=== PATIENT | male | born 1945 | race Caucasian/White ===

== ENCOUNTER 2021-05-20 10:59 | Emergency (ER) | payer MEDICARE, SELFPAY ==
--- NOTE | ~2021-05-20 | CT_ITS ---
EXAMINATION: CT abdomen pelvis w con INDICATION: Mid abdominal pain TECHNIQUE: Computed tomographic images of the abdomen and pelvis were obtained after the administrati on of 100 cc of Omnipaque 350 intravenous contrast. The dose-length product (DLP) was 554.94 mGy-cm. Automated exposure control and iterative reconstruction technique were employed. COMPARISON: 08/14/2019, 08/04/2007 FINDINGS: Minimal dependent atelectasis is present in the lung bases. The heart size is normal. There is a moderate-sized sliding hiatal hernia. There is a 2.2 cm cyst of the liver. Also seen is a stabl e 1.7 cm hypoattenuating lesion of the right hepatic lobe, likely an atypical hemangioma given contra st enhancement profile and long-term interval stability. The spleen, pancreas, gallbladder, and adren al glands are normal. Cysts of the kidneys measure up to 6.8 cm on the left. There is calcified ather osclerosis of the aorta and many of the other arteries. No pathologically enlarged abdominal or pelvi c lymph nodes are identified. Changes in the left inguinal region are consistent with recent hernia r epair. Foci of gas in the urinary bladder likely reflect recent catheterization. There is a large vol ume of stool in the rectum. There are air-fluid levels within the nondistended ascending and transver se colon. There is no free intraperitoneal gas or evidence of bowel obstruction. A reservoir for a pe nile prosthesis is implanted in the right anterior abdominal wall. Surgical clips in the pelvis are c onsistent with prostatectomy and pelvic lymph node dissection. There is moderate lumbar spondylosis. IMPRESSION: 1. Constipation. Reviewed, dictated and finalized at location A. IMPRESSION: 1. Constipation.
[2021-05-20 11:15] VITALS: BP 135/75; PULSE 81; RESP 20; TEMP 36.4; O2SAT 97
--- NOTE | 2021-05-20 11:19 | ED.ABDPAIN ---
HPI - Abdominal Pain General Chief Complaint: Abdominal Pain Stated Complaint: abd pain, no BM in 9 days, nausea, no appetite Time Seen by Provider: 05/20/21 11:19 Source: patient Limitations: no limitations History of Present Illness HPI narrative: 76-year-old man with a history coronary artery disease comes to the ER complaining of no BM for the last 9 days. Patient states he underwent penile implant and left inguinal hernia repair surgery 9 days ago. He states that he has had no BM since. He states he has passed a small amount of gas but no blood. He has had nausea without vomiting. He last ate yesterday (toast and hard boiled eggs). He took Mag citrate 2 days ago and 1 dose of MiraLax in the last 24 hours. He has been taking stool softeners as well. He denies cough or cold symptoms, fever, chills, vomiting, dysuria, hematuria, BRBPR, chest pain and shortness of breath. MD elicited complaint: abdominal pain Pertinent past history: other (Recent surgery) Onset (ago): day(s) (9) Pain Consistency: intermittent Location: diffuse Severity: moderate Quality: cramping Radiation: none Migration to: no migration Exacerbating factors: nothing Relieving factors: nothing Context: confirms recent surgery/procedure Associated symptoms: nausea and constipation Treatments prior to arrival: other (Mag citrate p.o., MiraLax.) Related Data Home Medications Medication Instructions Recorded Confirmed Aspir-81 81 mg PO DAILY 05/20/21 05/20/21 Centrum Silver Men 1 cap PO DAILY 05/20/21 05/20/21 lisinopril 5 mg PO DAILY 05/20/21 05/20/21 metoprolol succinate 50 mg PO DAILY 05/20/21 05/20/21 rosuvastatin 40 mg PO DAILY 05/20/21 05/20/21 Allergies Allergy/AdvReac Type Severity Reaction Status Date / Time No Known Allergies Allergy Unverified 11/16/19 11:51 Review of Systems Review of Systems: All systems reviewed & are unremarkable except as noted in HPI and below Constitutional: Constitutional: Denies chills and Denies fever(s) ENT: Denies nasal congestion and Denies sore throat Cardiovascular: Cardiovascular: Denies chest pain and Denies radiating jaw, neck or arm pain Respiratory: Respiratory: Denies cough and Denies dyspnea Gastrointestinal: Gastrointestinal: Reports as per HPI, Reports abdominal pain, Reports bloating, Reports constipation, Denies diarrhea, Reports nausea and Denies vomiting Genitourinary: Genitourinary: Denies hematuria, Denies dysuria and Denies urinary frequency Musculoskeletal: Musculoskeletal: Denies back pain, Denies arthralgias and Denies joint swelling Integumentary/Breasts: Skin/Breast: Denies pruritus, Denies erythema and Denies rash Neurologic: Denies vertigo, Denies dizziness and Denies syncope Hematologic/Lymphatic: Hematologic/Lymphatic: Denies easy bleeding and Denies easy bruising Allergic/Immunologic: Allergic/Immunologic: Denies lip swelling and Denies throat swelling PMFSH Past Medical History Medical History (Updated 05/20/21 @ 15:33 by Alex Santo MD) Coronary artery disease Hypertension Surgical History Surgical History (Updated 05/20/21 @ 11:48 by Alex Santo MD) H/O knee surgery H/O left inguinal hernia repair H/O wrist surgery S/P insertion of penile implant Social History Social History (Updated 05/20/21 @ 11:48 by Alex Santo MD) Smoking status: Former smoker Alcohol intake: current Alcohol use details: Approximately 2 beers per week Substance use: never Living arrangements: with family Exam Const: General: healthy appearing and alert Orientation/consciousness: patient oriented x3 Limitations: no limitations Other: Moderate acute distress. HENMT: Mouth: Yes moist mucous membranes Throat: posterior oropharynx normal Eyes: Conjunctivae: conjunctivae normal Pupils: Equal, round and reactive pupils present EOM: EOMs intact bilaterally Resp: Effort & Inspection: normal respiratory effort and not labored Auscultat
[2021-05-20] MEDS: METOCLOPRAMIDE HCL INJ 10 MG/2 ML VIAL IV PUSH (12:00)
[2021-05-20 12:02] LABS: Basophils Absolute Auto 0.04 K/mm3 (0.00-0.10); Basophils Percent Auto 0.5 % (0.0-1.0); Eosinophils Absolute Auto 0.15 K/mm3 (0.02-0.50); Eosinophils Percent Auto 1.7 % (1.0-6.0); Hematocrit 45.8 % (37.0-46.0); Hemoglobin 15.1 g/dL (12.4-15.3); Immature Granulocyte Absolute 0.04 K/mm3 (0.00-0.00); Immature Granulocyte Percent A 0.5 % (0.0-0.0); Lymphocytes Absolute Auto 1.63 K/mm3 (1.10-4.50); Mean Corpuscular Hemoglobin 29.8 pg (27.0-31.0); Mean Corpuscular Volume 90.3 fL (78.0-102.0); Mean Platelet Volume 8.4 fl (8.7-11.0); Monocytes Absolute Auto 0.78 K/mm3 (0.10-0.90); Monocytes Percent Auto 9.1 % (2.0-11.0); Neutrophils Percent Auto 69.2 % (50.0-70.0); Platelet Count Result 252 K/mm3 (150-420); Red Blood Count 5.07 M/mm3 (4.70-6.10); Red Cell Distribution Width 13.3 % (11.6-14.4); White Blood Count 8.6 K/mm3 (4.8-10.8)
[2021-05-20 12:03] LABS: Add Urine Microscopic? NO; Appearance Urine Clear (Clear); Bilirubin Urine Negative (Negative); Blood Urine Negative (Negative); Color Urine Light Yellow (Yellow); Glucose Urine UA Negative (Negative); Ketones Urine Negative (Negative); Leukocyte Esterase Ur Negative (Negative); Nitrate Urine Negative (Negative); Occult Blood Negative (Negative); Protein Urine Negative (Negative); Urobilinogen Urine 0.2 mg/dL (0.2-1.0); pH Urine 6.5 (5.0-8.0)
[2021-05-20 12:15] LABS: Alanine Aminotransferase 35 U/L (16-63); Albumin Level 3.7 g/dL (3.4-5.0); Alkaline Phosphatase 85 U/L (46-116); Anion Gap 10 mmol/L (8-16); Aspartate Amino Transferase 20 U/L (15-37); Bilirubin,Total 0.6 mg/dL (0.00-1.00); Blood Urea Nitrogen 26 mg/dL (7-18); Calcium 9.1 mg/dL (8.5-10.1); Carbon Dioxide 27 mmol/L (21-32); Chloride 98 mmol/L (98-108); Estimated CRCL calculation 40 ml/min; Estimated Glomerular Filt Rate 42; Glucose 103 mg/dL (70-99); Osmolality Calculated 284 mOsm/kg (285-295); Potassium 4.7 mmol/L (3.5-5.1); Sodium 135 mmol/L (136-145); Total Protein 7.7 g/dL (6.4-8.2)
[2021-05-20 12:18] LABS: Lactic Acid Reflex 0.9 mmol/L (0.4-2.0)
[2021-05-20] MEDS: SODIUM CHLORIDE 0.9% IV 1,000 ML 999 ML IV CONT (13:00)
--- NOTE | 2021-05-20 14:38 | PC.NURSE ---
1430 PT TO FLOOR FOR ENEMA PER WHEELCHAIR
--- NOTE | 2021-05-20 14:39 | PC.NURSE ---
1230 REPORT TO SUPRIYA BALDERAS
[2021-05-20 15:53] VITALS: RESP 20; O2SAT 98
== END 2021-05-20 15:54 | disposition home or self-care (01) ==
PROVIDERS: Emergency Provider Emergency Medicine; PCP Internal Medicine
DX: K59.00 Constipation, unspecified (principal); I25.10 Atherosclerotic heart disease of native coronary artery without angina pectoris; I10 Essential (primary) hypertension
CPT/HCPCS: 36415; 74177; 80053; 81003; 83605; 85025; 96361; 96374; 99283; 99284; J2765; J7030; Q9967

== ENCOUNTER 2022-11-13 13:33 | Outpatient (CLI) | payer MEDICARE, SELFPAY ==
--- NOTE | ~2022-11-13 | US_ITS ---
EXAMINATION: US carotid duplex BI DATE: 11/13/2022 13:59 INDICATION: Left carotid bruit. TECHNIQUE: Grayscale, color Doppler, and pulsed Doppler images of the cervical carotid arteries were obtained. The degree of vessel stenosis is placed in one of the following categories: normal, <50%, 5 0-69%, >=70% but less than near-occlusion, near-occlusion, or total occlusion. Note that percent sten osis relative to normal distal artery lumen diameter is indirectly measured from velocity measurement s as described by Myles, et al. Radiology 2003; 229:340-346. COMPARISON: None. FINDINGS: RIGHT: The right common carotid artery (CCA) peak systolic velocity (PSV) is 118 cm/s. The right internal ca rotid artery (ICA) PSV is 56 cm/s. The right ICA end-diastolic velocity (EDV) is 14 cm/s. The right I CA/CCA PSV ratio is 0.5. Grayscale and color Doppler images yield an estimate of <50% diameter reduct ion from plaque in the ICA. There is antegrade flow in the right vertebral artery. LEFT: The left CCA PSV is 84 cm/s. The left ICA PSV is 92 cm/s. The left ICA EDV is 25 cm/s. The left ICA/C CA PSV ratio is 1.1. Grayscale and color Doppler images yield an estimate of <50% diameter reduction from plaque in the ICA. There is antegrade flow in the left vertebral artery. IMPRESSION: 1. <50% stenosis in the right internal carotid artery. 2. <50% stenosis in the left internal carotid artery. Reviewed, dictated and finalized at location A. [employer]
== END 2022-11-13 13:34 | disposition home or self-care (01) ==
LOC: CHSIMG 13:36
PROVIDERS: PCP Internal Medicine; Visit Provider Internal Medicine
DX: I65.23 Occlusion and stenosis of bilateral carotid arteries (principal)
CPT/HCPCS: 93880

== ENCOUNTER 2023-05-24 09:46 | Outpatient (CLI) | payer MEDICARE, SELFPAY ==
--- NOTE | ~2023-05-24 | XR_ITS ---
EXAMINATION: XR chest 2V DATE: 05/24/2023 10:06 INDICATION: Right lower lobe crepitus TECHNIQUE: Frontal and lateral views of the chest are obtained COMPARISON: 09/16/2017 FINDINGS: The lungs are free of acute opacities. A calcified nodule of the left lower lobe is consist ent with old granulomatous disease. There is a moderate-sized hiatal hernia. No pleural effusion or p neumothorax. The heart size is normal. There is mild thoracic spondylosis. IMPRESSION: 1. No acute cardiopulmonary abnormality. Reviewed, dictated and finalized at location B.
== END 2023-05-24 09:47 | disposition home or self-care (01) ==
LOC: CHSIMG 09:48
PROVIDERS: PCP Internal Medicine; Visit Provider Internal Medicine
DX: R06.89 Other abnormalities of breathing (principal)
CPT/HCPCS: 71046

== ENCOUNTER 2024-03-24 08:49 | Outpatient (CLI) | payer MEDICARE, SELFPAY | END 2024-03-24 08:50 | disposition home or self-care (01) | PROVIDERS: PCP Internal Medicine; Visit Provider Internal Medicine | DX: L82.1 Other seborrheic keratosis (principal); L57.8 Other skin changes due to chronic exposure to nonionizing radiation | CPT/HCPCS: 88305 ==

== ENCOUNTER 2024-08-04 01:55 | Day surgery (SDC) | payer MEDICARE, SELFPAY ==
[2024-07-23 13:19] VITALS: BMI 26.4
[2024-08-04 09:46] VITALS: BP 141/77; PULSE 99; RESP 20; TEMP 36; O2SAT 99
[2024-08-04] MEDS: LACTATED RINGERS 1,000 ML 150 ML IV CONT (10:00)
--- NOTE | 2024-08-04 10:33 | P.HP_ITS ---
H&P: HPI History of Present Illness Date/Time: 08/04/24 10:33 Chief Complaint: GERD, screening for colorectal cancer Narrative: this is a 79-year-old man who presents for colonoscopy and EGD in. His last colonoscopy was 10 years ago and was normal. He had an EGD about 10 years ago as well which showed some esophagitis. He continues to have occasional acid reflux and takes Tums or Prilosec. He denies any hematemesis, hematochezia, or melena. He denies family history of colon cancer. Review of Systems Review of Systems: All systems reviewed & are unremarkable except as noted in HPI and below Constitutional: Constitutional: Denies chills, Denies fever(s), Denies he adache(s) and Denies weight loss Eyes: Eyes: Denies change in vision ENT: Denies dizziness, Denies headache(s), Denies neck mass and Denies throat swelling Cardiovascular: Cardiovascular: Denies chest pain, Denies lightheadedness and Denies dyspnea Respiratory: Respiratory: Denies cough, Denies dyspnea and Denies wheezing Gastrointestinal: Gastrointestinal: Denies abdominal pain, Denies change in bowel habits, Denies nausea and Denies vomiting Genitourinary: Genitourinary: Denies hematuria and Denies dysuria Musculoskeletal: Musculoskeletal: Reports as per HPI Integumentary/Breasts: Skin/Breast: Reports as per HPI Neurologic: Denies dizziness and Denies headache(s) Allergic/Immunologic: Allergic/Immunologic: Denies throat swelling and Denies wheezing [facility] Past Medical History Medical History (Updated 08/04/24 @ 10:35 by Kenneth Stroud DO) Coronary artery disease Hypertension Surgical History Surgical History (Updated 05/20/21 @ 11:48 by Alex SantoMD) H/O knee surgery H/O left inguinal hernia repair H/O wrist surgery S/P insertion of penile implant Social History Social History (Updated 05/20/21 @ 11:48 by Alex SantoMD) Smoking status: Former smoker Tobacco type: cigarettes Alcohol intake: current Alcohol use details: Approximately 2 beers per week Substance use: never Substance use type: does not use Living arrangements: alone Spiritual care concerns: No Meds Home Medications and Allergies Home Medications Medication Instructions Recorded Confirmed Type Aspir-81 81 mg PO DAILY 05/20/21 08/04/24 History Centrum Silver Men 1 cap PO DAILY 05/20/21 08/04/24 History lisinopril 10 mg tablet 5 mg PO DAILY 05/20/21 08/04/24 History metoprolol succinate 50 mg 50 mg PO DAILY 05/20/21 08/04/24 History tablet,extended release 24 hr alirocumab 150 mg/mL subcutaneous 150 mg subcut [id number] 07/23/24 08/04/24 History pen injector (Praluent Pen) Allergies Allergy/AdvReac Type Severity Reaction Status Date / Time No Known Allergies Allergy Verified 08/04/24 09:39 Vital Signs Vital Signs - 24 hr 08/04/24 09:46 Temperature 96.8 F L Pulse Rate 99 Respiratory Rate 20 Blood Pressure 141/77 H Pulse Oximetry 99 Oxygen Delivery Room Air Exam Const: General: no acute distress and alert Orientation/consciousness: patient oriented x3 HENMT: Head: normocephalic and atraumatic Ears: hearing grossly normal bilaterally Face/Nose/Sinus: Normal nares present Mouth: Yes Normal oral and palatal mucosa present Eyes: Periorbital: periorbital findings normal Sclera: sclerae normal EOM: EOMs intact bilaterally Neck: Neck: normal visual inspection, no lymphadenopathy and trachea midline Chest: Chest palpation & inspection: normal inspection of the chest Resp: Effort & Inspection: normal respiratory effort Auscultation: clear to auscultation bilaterally Cardio: Jugular venous distension: no JVD Rate: regular rate Rhythm: regular rhythm Heart sounds: S1 normal heart sound present and S2 normal heart sound present Peripheral pulses: Peripheral pulses 2+ throughout GI: Inspection: normal to inspection GI Palp: Yes Soft to palpation, No Tenderness to palpation present (GI), No Guarding due to palpation present (GI) and No Rebound tenderness present Percussion: Yes normal to percussion Auscultation: normal bowel sounds : General: Yes no CVA tenderness Back/Spine/Pelvis: Back: no CVA tenderness Neuro: General: patient oriented x3, no focal motor deficits and CN's II-XI intact bilaterally Cognition (Neuro): normal cognition Speech: normal speech Motor exam (neuro): 5/5 motor strength present throughout Extrem: General: capillary refill normal and no clubbing, cyanosis or edema Assessment and Plan Assessment and plan (1) GERD (gastroesophageal reflux disease): Code(s): K21.9 - Gastro-esophageal reflux disease without esophagitis Status: Acute Assessment and Plan: I have recommended EGD & colonoscopy. I have discussed the procedure, risks, benefits, and alternatives. Questions were answered. Patient is agreeable to proceed. (2) Screening for colon cancer: Code(s): Z12.11 - Encounter for screening for malignant neoplasm of colon Status: Acute
--- NOTE | 2024-08-04 10:34 | P.PNAN_ITS ---
Anes - Initial Pre Proc Eval Procedure: Operation Date: 08/04/24 10:30 Proposed Procedures p Esophagogastroduodenoscopy&Screen Colon - Kenneth Stroud DO Date/Time: 08/04/24 10:34 Surgeon: Kenneth Stroud DO Pre Op Diagnosis: GERD/ neoplasm screening Patient Data Age: 79 Gender: M Height: 1.83 m Weight: 85.5 kg Last Vital Signs Temp 36.0 C L 08/04/24 09:46 Pulse 99 08/04/24 09:46 Resp 20 08/04/24 09:46 BP 141/77 H 08/04/24 09:46 Pulse Ox 99 08/04/24 09:46 O2 Del Method Room Air 08/04/24 09:46 Allergies Allergy/AdvReac Type Severity Reaction Status Date / Time No Known Allergies Allergy Verified 08/04/24 09:39 Home Medications Medication Instructions Recorded Confirmed Type Aspir-81 81 mg PO DAILY 05/20/21 08/04/24 History Centrum Silver Men 1 cap PO DAILY 05/20/21 08/04/24 History lisinopril 10 mg tablet 5 mg PO DAILY 05/20/21 08/04/24 History metoprolol succinate 50 mg 50 mg PO DAILY 05/20/21 08/04/24 History tablet,extended release 24 hr alirocumab 150 mg/mL subcutaneous 150 mg subcut [id number] 07/23/24 08/04/24 History pen injector (Praluent Pen) Patient hx anesthesia problems: none Family hx anesthesia problems: none Results Review: All pre-operative results and documents have been reviewed as part of the pre- operative evaluation. [facility] Past Medical History Medical History Coronary artery disease Hypertension Surgical History Surgical History H/O knee surgery H/O left inguinal hernia repair H/O wrist surgery S/P insertion of penile implant Social History Social History Smoking status: Former smoker Tobacco type: cigarettes Alcohol intake: current Alcohol use details: Approximately 2 beers per week Substance use: never Substance use type: does not use Living arrangements: alone Spiritual care concerns: No Anes - Eval Final PreProcedure Day of Procedure 08/04/24 10:34 Patient weight: overweight Heart: regular rate and rhythm Lungs: clear to auscultation and normal air movement Airway: Mallampati scale class III Neurological: alert and oriented Last oral intake: >/= 8 hours ASA classification: II Emergent: no Anesthetic plan: proceed Anesthesia type and monitoring: general GIVS Results Review: All pre-operative results and documents have been reviewed as part of the pre- operative evaluation. Informed Consent: The patient's anesthetic plan and its attendant risks and benefits were discussed with the patient/family/POA. Questions were solicited and answers provided to the satisfaction of the patient/family/POA.
--- NOTE | 2024-08-04 11:04 | SUR.OPER ---
EGD end 1100 COLONOSCOPY START 1110
[2024-08-04 11:33] VITALS: BP 130/92; PULSE 97; RESP 20; O2SAT 97
[2024-08-04 11:43] VITALS: BP 129/94; PULSE 97; RESP 20; O2SAT 97
[2024-08-04 11:53] VITALS: BP 138/92; PULSE 100; RESP 20; O2SAT 100
== END 2024-08-04 12:28 | disposition home or self-care (01) ==
PROVIDERS: PCP Internal Medicine; Visit Provider Surgery
PROC: 0DJ08ZZ Inspection of Upper Intestinal Tract, Via Natural or Artificial Opening Endoscopic (ICD-10-PCS; CPT 43235; principal; 2024-08-04 10:30)
DX: Z12.11 Encounter for screening for malignant neoplasm of colon (principal); K21.00 Gastro-esophageal reflux disease with esophagitis, without bleeding; K44.9 Diaphragmatic hernia without obstruction or gangrene; K22.89 Other specified disease of esophagus; I10 Essential (primary) hypertension; I25.10 Atherosclerotic heart disease of native coronary artery without angina pectoris; Z79.82 Long term (current) use of aspirin; Z79.85 Long-term (current) use of injectable non-insulin antidiabetic drugs; Z98.890 Other specified postprocedural states; Z87.891 Personal history of nicotine dependence; Z86.79 Personal history of other diseases of the circulatory system
CPT/HCPCS: 43239; G0121; 88305; J2003; J2704; J7120

== ENCOUNTER 2025-05-30 11:38 | Emergency (ER) | payer MEDICARE, SELFPAY ==
[2025-05-30] VITALS (28 sets, daily range): BP systolic 114–166; BP diastolic 64–98; PULSE 56–76; RESP 12–20; TEMP 36.7; O2SAT 93–99
--- NOTE | ~2025-05-30 | XR_ITS ---
EXAMINATION: XR chest 2V 05/30/2025 12:06 INDICATION: Chest pain PROCEDURE: 2 view chest COMPARISON: Comparison to multiple prior studies sequentially, with oldest reviewed study dated 07/12/2008. FINDINGS: The lungs are clear. The cardiomediastinal silhouette is within normal limits. There are no pleural effusions. There is no pneumothorax suspected. Large hiatal hernia. There is a calcified granuloma left lower lobe. IMPRESSION: 1: NO ACUTE CARDIOPULMONARY DISEASE. 2: Large hiatal hernia. Reviewed, dictated and finalized at location O.
--- NOTE | ~2025-05-30 | CT_ITS ---
EXAMINATION: CTA chest PE protocol DATE: 05/30/2025 13:58 CDT INDICATION: Chest pain. Elevated d-dimer. TECHNIQUE: Computed tomographic angiography (CTA) of the chest was performed with 100 mL Omnipaque-350 intravenous contrast. The dose-length product was 534.94 mGy-cm. Maximum intensity projection 3D-reconstructions of the aorta and other arteries were constructed by the technologist on a separate workstation. Automated exposure control and iterative reconstruction technique were employed. COMPARISON: None. FINDINGS: Study is technically adequate without evidence for pulmonary embolism. No evidence for aortic aneurysm or dissection. Large hiatal hernia. Heart size normal. No significant pleural or pericardial effusion. Large bilateral renal cysts. There is a liver cyst. Gallbladder is present. Pancreas unremarkable. There is dependent atelectasis. No focal pneumonia. No endobronchial lesions. No pneumothorax. IMPRESSION: 1. No acute cardiopulmonary disease. No evidence for pulmonary embolism. 2: Large hiatal hernia. Reviewed, dictated and finalized at location O.
--- NOTE | ~2025-05-30 | CT_ITS ---
EXAMINATION: CT BRAIN W/O DATE: 05/30/2025 13:38 INDICATION: Headache TECHNIQUE: Computed tomography (CT) of the head was performed without intravenous contrast. The dose-length product was 605.33 mGy-cm. Automated exposure control and iterative reconstruction technique were employed. COMPARISON: No prior studies for comparison. FINDINGS: Normal brain parenchymal volume for age. Normal mathew-white differentiation. No acute intracranial hemorrhage, infarction, mass or mass effect. There are scattered mild periventricular and subcortical white matter changes, most likely related to small vessel ischemic disease (microangiopathy). There is intracranial atherosclerosis. No ventriculomegaly or midline shift. Midline sagittal images demonstrate a normal corpus callosum, craniovertebral junction and sella turcica. Basilar cisterns are patent. There is mild mucosal thickening of the ethmoid air cells. Mastoids are pneumatized. No depressed skull fractures. IMPRESSION: 1. No acute intracranial abnormality. 2: Mild ethmoid sinus disease. Reviewed, dictated and finalized at location O.
--- NOTE | 2025-05-30 11:39 | ECG_ITS ---
Test Date: 2025-05-30 11:42:25 Measurements Intervals [place] Rate: 68 P: 51 OK: 214 QRS: -5 QRSD: 82 T: 38 QT: 362 QTc: 386 Interpretive Statements SINUS RHYTHM WITH FIRST DEGREE AV BLOCK BASELINE ARTIFACT- II, III, AVL, AVF, V5 BORDERLINE ECG No previous ECG available for comparison Electronically Signed On 05-30-2025 15:16:29 CDT by Tariq Rollins D.O.
--- OUTSIDE RECORDS SUMMARY | 2025-05-30 11:39 | XMS_ITS | Clinical Summary ---
Author Organization [facility] [address] Address [address] [place] [id number] Care Team Providers Care Cribber Name Role Phone Elke Thomason MD Primary Care Provider + [phone] Marcell Loyd MD Unavailable [phone] Zoila Porter MD Unavailable [phone] Allergies No known active allergies Medications metoprolol XL (Toprol XL) 50 mg extended release tablet Take 50 mg by mouth daily Active lisinopriL (PRINIVIL,ZESTR IL) 5 mg tablet Take 5 mg by mouth daily Active rosuvastatin (CRESTOR) 40 mg tablet Take 40 mg by mouth nightly Active coenzyme Q10 200 mg capsule Take 200 mg by mouth daily Active multivitamin tabletIndicatio ns:Vitamin Deficiency Prevention Take 1 tablet by mouth daily Centrum Silver Active aspirin 81 mg enteric coated tablet Take 1 tablet (81 mg total) by mouth daily Resume in 2 days 05/12/2021 Active Active Problems Problem Noted Date Diagnosed Date Erectile dysfunction 05/11/2021 CAD (coronary artery disease) 05/04/2021 Hypertension 05/04/2021 Hyperlipidemia 05/04/2021 GERD (gastroesophageal reflux disease) Left inguinal hernia 04/11/2021 Surgical History Surgery Date Site/Laterality Comments WRIST SURGERY PROSTATECTOMY TONSILLECTOMY KNEE SURGERY HERNIA REPAIR BLADDER SURGERY cyst removal Medical History Medical History Date Comments CAD (coronary artery disease) 05/04/2021 Hypertension 05/04/2021 Hyperlipidemia 05/04/2021 GERD (gastroesophageal reflux disease) 05/04/2021 Family History Medical History Relation Name Comments Deep vein thrombosis Brother Heart disease Father pacemaker Anesthesia problems Mother memory i ssues Deep vein thrombosis Mother Relation Name Status Comments Brother Father Mother Social History Tobacco Use Types Packs/Day Years Used Date Smoking Tobacco: Former Smokeless Tobacco: Never AUDIT-C Answer Date Recorded Q1: How often do you have a drink containing alc ohol? 2-4 times a month 05/11/2021 Q2: How many drinks containi ng alcohol do you have on a typical day when you are drinking? 1 or 2 05/11/2021 Frequency of Binge Drinking Not on file 02/2021 Sex and Gender Information Value Date Recorded Sex Assigned at Not on file Legal Sex Male 12:17 PM ADMISSION LIAISON Gender Identity Male 04/29/2021 9:46 AM CDT Sexual Orientation Straight 04/29/2021 9: 46 AM CDT Obstetrics History Last Filed Vital Signs Vital Sign Reading Time Taken Comments Blood Pressure 122/69 05/12/2021 12:51 PM CDT Pulse 75 05/12/2021 12:51 PM CDT Temperature 36.8 C (98.3 F) 05/12/2021 12:51 PM CDT Respiratory Rate 16 05/12/2021 12:51 PM CDT Oxygen Saturation 99% 05/12/2021 12:51 PM CDT Inhaled Oxygen Concentration - - Weight 88.5 kg (195 lb) 05/23/2021 11:27 AM CDT Height 182.9 cm (6') 05/23/2021 11:27 AM CDT Body Mass Index 26.45 05/23/2021 11:27 AM CDT Plan of Treatment Not on file Medical Devices Implanted Type Area Lamination Assembler Device Identifier Shelf Expiration Date Model / Serial / Lot [employer] Endo Surgery Phse Prolene 3 15/16in .75in 4 15/16inx2 5/32inx.5in Soft Knit Extend - [id number] Implanted:Qty: 1 on 05/11/2021 by Marcell Loyd MD at [facility] Mesh Left: Inguinal [employer] End[employer] Surgery 12/04/2025 PHSE / / [id number] [facility] [facility] [id number] Ams 700 Kit Accessory Penile Prosthesis - [id number] Implanted:Qty: 1 on 05/11/2021 by Zoila Porter MD at [facility] N/A: Penis [employer] [place] [id number] / / [employer] [id number] Ams Spectra 12/14mm 1cm Cylinder Concealable Malleable Rear Tip - [id number] Implanted:Qty: 1 on 05/11/2021 by Zoila Porter MD at [facility] N/A: Penis [employer] [place] 08/01/2025 [id number] / / [id number] [employer] [id number] Conceal Low Profile [place] 100ml Prosthesis Inhibizone Sterile Latex Free - [id number] Implanted:Qty: 1 on 05/11/2021 by Zoila Porter MD at [facility] N/A: Penis [employer] [place] 04/05/2023 [id number] / / [id number] [employer] [place] [id number] Ams 700 Preconnect 1 Ms Pump 2 Cylinder Penoscrotal Prosthesis - [id number] Implanted:Qty: 1 on 05/11/2021 by Zoila Porter MD at [facility] N/A: Penis [employer] [place] [id number] / / Insurance [facility] MEDICARE ADVANTAGE [facility] MEDICARE Address: [facility] [address] [place] [address] [facility] MEDICARE ADVANTAGE [facility] MEDICARE Address: [facility] [address] [place] [address] Advance Directives For more information, please contact: [phone] * Full Code (Latest Code Status on File) Date Activated Date Inactivated Comments 05/11/2021 6:27 PM 05/12/2021 6:13 PM Care Teams Cribber Relationship Specialty Start Date End Date Elke Thomason MD [address] [place] [address] PCP - General Internal Medicine 04/11/21 Marcell Loyd MD [address] [place] [address] Consulting Physician General Surgery 05/11/21 Zoila Porter MD [address] [place] [address] Consulting Physician Urology 05/12/21
--- OUTSIDE RECORDS SUMMARY | 2025-05-30 11:39 | XMS_ITS | Clinical Summary ---
Author Organization [facility] Address [address] [place] [address] Care Team Providers Care Cloth Desizing Range Tender Name Role Phone Elke Thomason MD Primary Care Provider [phone] Zoila Porter MD Unavailable [phone] Ailin Chavis MD Unavailable [phone] Beata Grider ANP- Unavailable +- Jimena Munoz MD Unavailable Allergies Active Allergy Reactions Criticality Noted Date Comments Statins Myalgias 04/16/2024 Medications Coenzyme Q10 (CO Q-10) 200 MG Cap Take by mouth daily. 8 Active nitroglycerin 0.4 MG SL tablet Nitrostat (nitroglycerin) Tablet, Sublingual 0.4 mg; ONE TABLET UNDER TONGUE NEEDED FOR CHEST PAIN NOTE: NOT A DAILY MED.; 25; 6; -Jul-2010; Active 0 Active lisinopril 10 MG tablet Take 1 tablet (10 mg total) by mouth daily. 7 Active aspirin EC 81 MG EC tablet Take 1 tablet (81 mg total) by mouth daily. Active omeprazole 20 MG capsule Take 1 capsule (20 mg total) by mouth as needed. Active calcium carbonate 750 MG chewable tablet Chew 2 tablets (1,500 mg total) by mouth 3 (three) times daily as needed for Heartburn. Active PRALUENT 75 MG/ML injection (PEN) Inject 1 mL (75 mg total) into the skin every 14 (fourteen) days. 3 Active metoprolol succinate ER (TOPROL-XL) 50 MG 24 hr tablet Take 1 tablet (50 mg total) by mouth daily. 4 Active Active Problems Problem Noted Date Diagnosed Date S/p bare metal coronary artery stent 08/13/2017 Chronic renal insufficiency, stage 2 (mild) HLD (hyperlipidemia) HTN (hypertension) Prostate cancer (CMS/HCC HHS/HCC) GERD (gastroesophageal reflux disease) CAD (coronary artery disease) Anxiety and depression Resolved Problems Problem Noted Date Diagnosed Date Resolved Date Pre-operative cardiovascular examination 11/25/2019 06/17/2020 Encounters Date Type Department Care Team Description 05/05/[address] [facility] [address] [place] [address] Beata Grider ANP-BC Appointment Request 05/04/2025 9:00 AM CDT [facility] [address] [place] [address] Beata Grider ANP-BC Follow Up (CAD) 05/04/2025 8:28 AM CDT - 05/04/2025 11:59 PM CDT Hospital Encounter [facility] [address] [place] [address] Jimena Munoz MD Discharge Disposition: Home or Self Care (Routine Discharge) 05/04/2025 Travel from Last 3 Months Family History Medical History Relation Comments renal cancer Brother Heart Disease Father Pacemaker implan sakina Dementia Mother Miscarriages / Stillbirths Mother Still Relation Status Comments Brother Alive Father Mother Social History Tobacco Use Types Packs/Day Years Used Date Smoking Tobacco: Former Cigarettes 1 10 0 11/25/1959 - 11/25/1969 Smokeless Tobacco: Never Tobacco Cessation:Counseling Given: Not Answered Alcohol Use Standard Drinks/Week Comments Yes 0 (1 standard drink = 0.6 oz pur e alcohol) 2 per week Sex and Gender Information Value Date Recorded Sex Assigned at Not on file Legal Sex Male 10:47 PM CDT Gender Identity Not on file Sexual Orientation Not on file 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 Not on file Not on file Last Filed Vital Signs Vital Sign Reading Time Taken Comments Blood Pressure 130/75 05/04/2025 9:51 AM CDT Pulse 73 05/04/2025 9:51 AM CDT Temperature - - Respiratory Rate 18 05/04/2025 9:51 AM CDT Oxygen Saturation 97% 05/04/2025 9:51 AM CDT Inhaled Oxygen Concentration - - Weight 90.2 kg (198 lb 12.8 oz) 05/04/2025 9:51 AM CDT Height 182.9 cm (6') 05/04/2025 9:51 AM CDT Body Mass Index 26.96 05/04/2025 9:51 AM CDT Plan of Treatment Health Maintenance Due Date Last Done Comments Hepatitis C 1963 DTaP, Tdap and Td Vaccines ( 1 - Tdap) 1966 ASCVD LDL 09/01/2009 09/01/2008 Annual Medicare Wellness Visit 01/18/2012 Pneumococcal Vaccine: 50+ Years (2 of 2 - PPSV23) 08/01/2017 06/06/2017 RSV Immunization or 60+ Years (1 - 1-dose 75+ series) 2022 COVID-19 Vaccine ( - 2023-2 5 season) 2024 AAA SCREENING Completed 05/19/2014 Zoster Vaccines Completed 05/13/2019, 03/09/2019, 07/13/2014 Meningococcal B Vaccine Aged Out No l onger eligible based on patient's age to complete this topic Meningococcal Vaccine Aged Out No cammy los eligible based on patient's age to complete this topic RSV Immunizations Under 20 Months Aged Out No longer eligible b ased on patient's age to complete this topic Procedures Procedure Name Priority Date/Time Associated Diagnosis Comments ECG 12-LEAD Routine 05/04/2025 8:52 AM CDT Coronary artery disease involving [place] coronary artery of [place] heart without angina pectoris LIPID PANEL Routine 09/01/2008 7:00 AM IT TEACHER from Last 3 Months or Most Recently Relevant to Health Maintenance Results * ECG 12 lead (HOSPITAL PERFORMED ONLY) (05/04/2025 8:52 AM CDT) 05/04/2025 8:52 AM CDT Narrative [facility] - 05/04/2025 4:47 PM CDT [address] [place] [address] Test Date: 2025-05-04 Pat Name: JESUS REARDONRICHA Department: 3 Room: Gender: Male Election Supervisor: : 1945 Requested By: BEATA GRIDER Order Number: [id number] Reading MD: Solis Friend Measurements Intervals [place] Rate: 74 P: 65 [place]: 236 QRS: 40 QRSD: 85 T: 40 QT: 343 QTc: 381 Interpretive Statements SINUS RHYTHM WITH FIRST DEGREE AV BLOCK Procedure Note Solis Friend MD - 05/04/[address] 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: : 1945 Requested By: BEATA GRIDER Order Number: [id number] Reading MD: Solis Friend Measurements Intervals [place] Rate: 74 P: 65 [place]: 236 QRS: 40 QRSD: 85 T: 40 QT: 343 QTc: 381 Interpretive Statements SINUS RHYTHM WITH FIRST DEGREE AV BLOCK Beata Grider [facility] ECG ORDERABLES Final Res ult [facility] * LIPID PANEL (09/01/2008 7:00 AM IT TEACHER) HDL 46 >39 mg/dL MEDINFORMATIX TO EPIC CONVERSION LIPOPROTEIN (A) 14 0 - 30 mg/dL MEDINFORMATIX TO EPIC CONVERSION LDL CONVERSION 90 <100 mg/dL MEDINFORMATIX TO EPIC CONVERSION CHOLESTEROL 147 <200 mg/dL MEDINFORMATIX TO EPIC CONVERSION TRIGLYCERIDES 96 <150 mg/dL MEDINFORMATIX TO EPIC CONVERSION VLDL CALCULATION 11 0 - 31 mg/dL MEDINFORMATIX TO EPIC CONVERSION CHOL/HDL RATIO 3.2 0 - 4 MEDIN FORMATIX TO EPIC CONVERSION CHOL/HDL RATIO 2.0 0 - 3 MEDIN FORMATIX TO EPIC CONVERSION APOLIPOPROTEIN B 82 0 - 115 mg/dL MEDINFORMAT[employer] TO EPIC CONVERSION NON HDL CHOLESTEROL 101 0 - 130 mg/dL MEDINFORMAT[employer] TO EPIC CONVERSION HOMOCYSTEINE (U) 8 0 - 9 umol/l MEDINFORMATIX TO EPIC CONVERSION HOMOCYSTEINE (U) NORMAL LEVEL IS LESS THAN OR EQUAL TO 9 MILD IS 10 TO 15 umol/L MODERATE IS 16 T MEDINFORMATIX TO EPIC CONVERSION 09/01/2008 7:00 AM IT TEACHER 09/01/2008 7:00 AM IT TEACHER Narrative MEDINFORMATIX TO EPIC CONVERSION - 09/01/2008 7:49 AM IT TEACHER Reviewed by JANEY Sep 01 2008 5:47:00:000PM us Generic Conversion Md [facility] Final R esult MEDINFORMATIX TO EPIC CONVERSION from Last 3 Months or Most Recently Relevant to Health Maintenance Insurance [employer] Care Teams Cloth Desizing Range Tender Relationship Specialty Start Date End Date Elke Thomason MD [address] [place] [id number] PCP - General INTERNAL MEDICINE 06/28/17 [place] [address] [place] [phone] Consulting Physician UROLOGY 03/07/21 [place] [address] [place] [phone] INTERVENTIONAL CARDIOLOGY 01/15/24 Beata Grider, [facility] [address] [place] [address] Nurse Practitioner NURSE PRACTITIONER ADULT HEALTH 01/15/24 Jimena Munoz MD [address] [place] [address] Consulting Physician CARDIOVASCULAR DISEASE 03/18/25
--- NOTE | 2025-05-30 11:52 | ED.CHESTPAIN ---
HPI - Chest Pain General Chief Complaint: Chest Pain Stated Complaint: chest pain Source: patient Mode of arrival: ambulatory Limitations: no limitations History of Present Illness HPI narrative: Patient is a 72-year-old male with some left-sided chest pain without radiation today. He has associated headache. Patient has CAD with prior stent in the left coronary artery over 10 years ago. MD complaint: chest pain Pertinent past history: coronary artery disease Onset (ago): year(s) Timing of current episode: episodic Prior episodes: Yes Onset: during rest Pain location: substernal and left chest Pain radiation: none Severity: moderate Pain scale (0-10): 5 Quality: heaviness and similar to prior [place] Relieving factors: nothing and rest Exacerbating factors: exertion and movement Context: other ( Patient having chest pain substernal left-sided with associated headache today) Associated symptoms: nausea Treatment prior to arrival: none Risk Factors Coronary artery disease risk factors: hypertension Thoracic aortic dissection risk factors: none Related Data Home Medications ?Medication ?Instructions ?Recorded ?Confirmed ?Last Taken ?Type Aspir-81 81 mg PO DAILY 05/20/21 08/04/24 08/02/24 21:00 History Centrum Silver Men 1 cap PO DAILY 05/20/21 08/04/24 08/03/24 07:30 History lisinopril 10 mg tablet 5 mg PO DAILY 05/20/21 08/04/24 08/03/24 07:30 History metoprolol succinate 50 mg 50 mg PO DAILY 05/20/21 08/04/24 08/02/24 21:00 History tablet,extended release 24 hr alirocumab 150 mg/mL subcutaneous 150 mg subcut [id number] 07/23/24 08/04/24 08/03/24 07:30 History pen injector (Praluent Pen) Allergies Allergy/AdvReac Type Severity Reaction Status Date / Time No Known Allergies Allergy Verified 05/30/25 12:00 Review of Systems Review of Systems: All systems reviewed & are unremarkable except as noted in HPI and below Constitutional: Constitutional: Reports no additional constitutional complaints Eyes: Eyes: Reports no additional eye complaints ENT: Reports system reviewed and no additional complaints, except as documented Cardiovascular: Cardiovascular: Reports no additional cardiovascular complaints Respiratory: Respiratory: Reports no additional respiratory complaints Gastrointestinal: Gastrointestinal: Reports no additional gastrointestinal complaints Genitourinary: Genitourinary: Reports no additional male genitourinary complaints Musculoskeletal: Musculoskeletal: Reports no additional musculoskeletal complaints Integumentary/Breasts: Skin/Breast: Reports system reviewed and no additional complaints, except as docu Neurologic: Reports system reviewed and no additional complaints, except as documented Psychiatric: Psychiatric: Reports no additional psychiatric complaints Endocrine: Endocrine: Reports no additional endocrine complaints Hematologic/Lymphatic: Hematologic/Lymphatic: Reports no additional hematologic/lymphatic complaints Allergic/Immunologic: Allergic/Immunologic: Reports no additional allergic/immunologic complaints PMFSH Past Medical History Medical History Coronary artery disease Hypertension Surgical History Surgical History S/P insertion of penile implant H/O left inguinal hernia repair H/O knee surgery H/O wrist surgery Social History Social History Smoking status: Former smoker Tobacco type: cigarettes Alcohol intake: current Alcohol use details: Approximately 2 beers per week Substance use: never Substance use type: does not use Living arrangements: alone Spiritual care concerns: No Exam Const: General: healthy appearing Nutritional Appearance: well nourished Orientation/consciousness: patient oriented x3 HENMT: Head: normal to inspection Ears: external ears normal Face/Nose/Sinus: Normal external nose present Eyes: Conjunctivae: conjunctivae normal Pupils: Equal, round and reactive pupils present EOM: EOMs intact bilaterally Neck: Neck: normal visual inspection Chest: Chest palpation & inspection: normal inspection of the chest Resp: Effort & Inspection: normal respiratory effort and not labored Auscultation: clear to auscultation bilaterally and no crackles Cardio: Rate: regular rate Rhythm: regular rhythm Heart sounds: no murmurs GI: Inspection: non-distended GI Palp: Yes Soft to palpation and No Tenderness to palpation present (GI) Auscultation: normal bowel sounds : General: Yes bladder normal to palpation Back/Spine/Pelvis: Back: no CVA tenderness Skin: General skin exam: normal color Rashes: no rashes Wounds: no wounds Neuro: General: patient oriented x3, moves all extremities and no meningeal signs Cranial nerves: Yes Nystagmus not present Speech: normal speech Extrem: General: normal to inspection Psych: Mental Status: mental status grossly normal Affect: normal affect Attitude: cooperative Course Vital Signs Vital signs: Vital Signs Pulse Rate 67 05/30/25 11:40 Temperature 36.7 C 05/30/25 11:47 Pulse Rate 57 L 05/30/25 14:31 Respiratory Rate 17 05/30/25 14:31 Blood Pressure 131/72 05/30/25 14:30 Pulse Oximetry 94 05/30/25 14:31 Oxygen Delivery Room Air 05/30/25 14:31 MDM - Chest Pain MDM Narrative Medical decision making narrative: Patient is a 80-year-old male with coronary artery disease here with chest pain. We will do a cardiac workup at this time. Lab Data Attestation: I reviewed the patient's lab results. 05/30/25 12:22 05/30/25 12:22 Labs: Lab Results 05/30/25 05/30/25 05/30/25 Range/Units 12:22 12:58 14:03 WBC 5.3 (4.8-10.8) K/mm3 RBC 4.83 (4.70-6.10) M/mm3 Hgb 14.2 (12.4-15.3) g/dL Hct 43.8 (37.0-46.0) % MCV 90.7 (78.0-102.0) fL MCH 29.4 (27.0-31.0) pg MCHC 32.4 (32-36) g/dL RDW 14.5 H (11.6-14.4) % Plt Count 199 (150-420) K/mm3 MPV 9.3 (8.7-11.0) fl Immature Gran % (Auto) 0.2 H (0.0-0.0) % Neut % (Auto) 51.6 (50.0-70.0) % Lymph % (Auto) 28.3 (18.0-42.0) % [place] % (Auto) 12.0 H (2.0-11.0) % Eos % (Auto) 6.8 H (1.0-6.0) % Baso % (Auto) 1.1 H (0.0-1.0) % Lymph # (Auto) 1.51 (1.10-4.50) K/mm3 [place] # (Auto) 0.64 (0.10-0.90) K/mm3 Eos # (Auto) 0.36 (0.02-0.50) K/mm3 Baso # (Auto) 0.06 (0.00-0.10) K/mm3 Abs Immat Gran (auto) 0.01 H (0.00-0.00) K/mm3 Absolute Neuts (auto) 2.75 (1.70-7.20) K/mm3 Absolute Nucleated RBC 0.00 (0.00-0.00) K/mm3 Nucleated RBC % 0.0 (0-0.0) % PT 10.2 (9.50-12.1) Seconds INR 0.9 APTT 24.4 (23.9-30.70) Sec D-Dimer 1.02 H (0.19-0.50) mg/L Sodium 139 (137-145) mmol/L Potassium 4.2 (3.4-5.0) mmol/L Chloride 106 (98-107) mmol/L Carbon Dioxide 25 (22-30) mmol/L Anion Gap 8 (4-12) mmol/L BUN 20 (9-20) mg/dL Creatinine 1.02 (0.7-1.3) mg/dL Estim Creat Clear Calc 58 ml/min Estimated GFR > 60 (59 - ) Glucose 142 H (65-110) mg/dL Calculated Osmolality 292 (285-295) mOsm/kg Calcium 9.2 (8.4-10.2) mg/dL Magnesium 2.0 (1.6-2.3) mg/dL Total Bilirubin 0.6 (0.2-1.3) mg/dL AST 34 (17-59) U/L ALT 23 (6-50) U/L Alkaline Phosphatase 71 (38-126) U/L Troponin I < 0.012 < 0.012 (0.000-0.034) ng/mL NT-Pro-B Natriuret Pep 39 (19.9-100) pg/mL Total Protein 6.4 (6.3-8.2) g/dL Albumin 4.1 (3.5-5.1) g/dL Lipase 172 (23-300) U/L Urine Color Yellow (Yellow) Urine Appearance Clear (Clear) Urine pH 5.5 (5.0-8.0) Ur Specific [place] 1.025 H (1.010-1.020) Urine Protein Negative (Negative) Urine Glucose (UA) Negative (Negative) Urine Ketones Negative (Negative) Ur Blood (Man) Negative (Negative) Urine Nitrate Negative (Negative) Urine Bilirubin Negative (Negative) Urine Urobilinogen 0.2 (0.2-1.0) mg/dL Leukocyte Esterase Rfl Negative (Negative) NAI/UL Imaging Data Attestation: I personally reviewed and interpreted this imaging study as follows: Radiologist's impression: chest x-ray is negative for acute process CT scan of the head was negative for acute process CTA of the chest is negative for acute process ECG Data EKG #1: Attestation: I personally reviewed and interpreted this ECG as follows: ECG completion date: 05/30/25 ECG completion time: 14:52 EKG Interpretation: normal rate, sinus rhythm, no ectopy, non-specific ST changes, normal QRS, normal QT, NL axis and no acute changes Discharge Plan Discharge Clinical Impression: Chest pain Qualifiers: Chest pain type: unspecified Qualified Code(s): R07.9 - Chest pain, unspecified Patient Disposition: Home Condition: Stable Instructions: Chest Pain (ED) Patient Language: Vietnamese Prescriptions: No Action metoprolol succinate 50 mg tablet extended release 24 hr 50 mg PO DAILY lisinopril 10 mg tablet 5 mg PO DAILY Aspir-81 81 mg PO DAILY Centrum Silver Men 1 cap PO DAILY Praluent Pen 150 mg/mL pen injector 150 mg [id number] [id number] Follow-up/Referrals: Elke Thomason MD [Primary Care Provider, Internal Medicine] Time of Disposition: 15:33
[2025-05-30 12:27] LABS: Hematocrit 43.8 % (37.0-46.0); Hemoglobin 14.2 g/dL (12.4-15.3); Immature Granulocyte Percent A 0.2 % (0.0-0.0); Lymphocytes Absolute Auto 1.51 K/mm3 (1.10-4.50); Mean Corpuscular HGB Conc 32.4 g/dL (32-36); Mean Corpuscular Hemoglobin 29.4 pg (27.0-31.0); Mean Corpuscular Volume 90.7 fL (78.0-102.0); Nucleated Red Blood Cells Absolute Auto 0.00 K/mm3 (0.00-0.00); Nucleated Red Blood Cells Perc 0.0 % (0-0.0); Platelet Count Result 199 K/mm3 (150-420); Red Blood Count 4.83 M/mm3 (4.70-6.10); White Blood Count 5.3 K/mm3 (4.8-10.8)
[2025-05-30] MEDS: ASPIRIN 325 MG ENTERIC TABLET PO (12:29)
[2025-05-30] MEDS: ACETAMINOPHEN 500 MG TABLET 1000 MG PO (12:29)
[2025-05-30 12:38] LABS: Lipase 172 U/L (23-300); Magnesium 2.0 mg/dL (1.6-2.3)
[2025-05-30 12:39] LABS: Alanine Aminotransferase 23 U/L (6-50); Albumin Level 4.1 g/dL (3.5-5.1); Alkaline Phosphatase 71 U/L (38-126); Anion Gap 8 mmol/L (4-12); Aspartate Amino Transferase 34 U/L (17-59); Bilirubin,Total 0.6 mg/dL (0.2-1.3); Blood Urea Nitrogen 20 mg/dL (9-20); Calcium 9.2 mg/dL (8.4-10.2); Carbon Dioxide 25 mmol/L (22-30); Chloride 106 mmol/L (98-107); Estimated CRCL calculation 58 ml/min; Estimated Glomerular Filt Rate > 60; Glucose 142 mg/dL (65-110); Osmolality Calculated 292 mOsm/kg (285-295); Potassium 4.2 mmol/L (3.4-5.0); Sodium 139 mmol/L (137-145); Total Protein 6.4 g/dL (6.3-8.2)
[2025-05-30 12:42] LABS: INR 0.9; Partial Thromboplastin Time 24.4 Sec (23.9-30.70); Prothrombin Time 10.2 Seconds (9.50-12.1)
[2025-05-30 12:49] LABS: NT Pro B Type Natriuretic Pept 39 pg/mL (19.9-100)
[2025-05-30 12:51] LABS: Troponin I < 0.012 ng/mL (0.000-0.034)
[2025-05-30 13:29] LABS: Add Urine Microscopic? NO; Appearance Urine Clear (Clear); Glucose Urine UA Negative (Negative); Leukocyte Esterase Ur Negative LEU/UL (Negative); Nitrate Urine Negative (Negative); Specific Grav Ur 1.025 (1.010-1.020)
--- NOTE | 2025-05-30 13:31 | PC.NURSE ---
pt to xray for ct with xray staff.
[2025-05-30 14:29] LABS: Troponin I < 0.012 ng/mL (0.000-0.034)
== END 2025-05-30 15:38 | disposition home or self-care (01) ==
PROVIDERS: Emergency Provider Emergency Medicine; PCP Internal Medicine
DX: R07.9 Chest pain, unspecified (principal); I25.10 Atherosclerotic heart disease of native coronary artery without angina pectoris; I25.2 Old myocardial infarction; I10 Essential (primary) hypertension; Z87.891 Personal history of nicotine dependence
CPT/HCPCS: 36415; 70450; 71046; 71275; 80053; 81003; 83690; 83735; 83880; 84484; 85025; 85380; 85610; 85730; 93005; 99284; A9270; Q9967